=== PATIENT | female | born 1990 | race Two or more races ===

== ENCOUNTER 2024-12-14 07:25 | Day surgery (SDC) | payer SELFPAY ==
[2024-12-14] MEDS ORDERED: Lidocaine 2% 5 ML SDV ONE (07:58)
[2024-12-14] MEDS ORDERED: propofoL 500 MG/50 ML 50 ML ONE (07:58)
[2024-12-14] MEDS: Lactated Ringers 1,000 ML IV SCH (08:22)
[2024-12-14] MEDS ORDERED: Midazolam 1 MG/ML 2 ML SDV ONE (08:53)
[2024-12-14] MEDS ORDERED: Propofol 200 MG/20 ML SDV ONE (09:34)
== END 2024-12-14 10:36 | disposition home or self-care (01) ==
LOC: MW.SDS 07:25 → EEVIPCON 09:45 → MW.SDS 10:36
PROVIDERS: ATTEND Surgery
DX: K29.50 Unspecified chronic gastritis without bleeding (principal); B96.81 Helicobacter pylori [H. pylori] as the cause of diseases classified elsewhere; K20.0 Eosinophilic esophagitis; D64.9 Anemia, unspecified; K44.9 Diaphragmatic hernia without obstruction or gangrene; K64.8 Other hemorrhoids; E03.9 Hypothyroidism, unspecified; Z79.890 Hormone replacement therapy; Z79.899 Other long term (current) drug therapy; K21.9 Gastro-esophageal reflux disease without esophagitis
CPT/HCPCS: 43239; 45378; 81025; J2003; J2250; J2704; J7120; 00813